=== PATIENT | female | born 1965 | race Caucasian/White ===

== ENCOUNTER 2018-05-08 19:30 | Emergency (ER) | payer OTHER ==
[2018-05-09] MEDS: KETOROLAC 30 MG INJ IM (00:30)
== END 2018-05-09 01:25 | disposition home or self-care (01) ==
LOC: FTE 19:30
DX: M54.2 Cervicalgia (principal); E03.9 Hypothyroidism, unspecified; F17.210 Nicotine dependence, cigarettes, uncomplicated
CPT/HCPCS: 96372; 99284-25